=== PATIENT | female | born 1975 | race Caucasian/White ===

== ENCOUNTER 2022-02-05 17:15 | Emergency (ER) | payer OTHER, SELFPAY ==
[2022-02-05 17:27] VITALS: BMI 32.5
[2022-02-05 17:32] VITALS: PULSE 101; PULSE 98; RESP 28; TEMP 36.1; O2SAT 96
[2022-02-05 17:39] VITALS: BP 126/74; PULSE 92; O2SAT 95
[2022-02-05] MEDS: LIDOCAINE 2% INJ MDV 6 ML INJ (17:47)
--- NOTE | 2022-02-05 17:49 | DI.RAD.S_ITS ---
PROCEDURE: XR HAND LT MIN 3V INDICATIONS: r/o fx TECHNIQUE: 3 views of the hand(s) acquired. COMPARISON: None. FINDINGS: Bones: There is a dislocation of the proximal phalanx of the little finger with the middle phalanx displaced dorsally. No fracture is identified. Soft tissues: No suspicious soft tissue calcifications. IMPRESSION: Dislocation of the proximal phalanx of the little finger with no fracture identified. Dictated by: Wander Dunn M.D. on 02/05/2022 at 18:57 Approved by: Wander Dunn M.D. on 02/05/2022 at 18:58
[2022-02-05 18:00] VITALS: BP 124/64; PULSE 98; O2SAT 96
--- NOTE | 2022-02-05 18:01 | DI.RAD.S_ITS ---
PROCEDURE: XR FINGER LT MIN 2V INDICATIONS: fx on previous xray needs fixing TECHNIQUE: AP hand, 2 views of the little finger(s) acquired. COMPARISON: [facility], , XR HAND LT MIN 3V, 02/05/2022, 17:48. FINDINGS: Bones: On the volar side of the PIP joint of the little finger there is a 2 mm density suspicious for an avulsion fracture. Soft tissues: No suspicious soft tissue calcifications. IMPRESSION: Possible avulsion fracture on the volar side of the little finger PIP joint. Dictated by: Wander Dunn M.D. on 02/05/2022 at 18:58 Approved by: Wander Dunn M.D. on 02/05/2022 at 19:00
--- NOTE | 2022-02-05 18:08 | PC.NURSE ---
gave digital block and ring cutter used to remove ring.
--- NOTE | 2022-02-05 18:19 | ED.UPPEXIN ---
HPI - Extremity Injury (Upper) General Chief Complaint: Extremity Injury, Upper Stated Complaint: Left little finger injury Time Seen by Provider: 02/05/22 17:20 Source: patient Mode of arrival: Ambulatory History of Present Illness HPI narrative: 46-year-old woman who comes to the ED tonight with a dislocated finger. She was getting on a boat hit her finger got caught in the handrail. She has intense pain in the left little finger. She denies injury elsewhere. She was otherwise well earlier today. No previous injury to that area. No break in the skin. Related Data Allergies Allergy/AdvReac Type Severity Reaction Status Date / Time MORPHINE Allergy Mild ITCHING Uncoded 02/05/22 17:32 Review of Systems Review of Systems Narrative: Complete review of systems is otherwise negative. Exam Narrative Exam Narrative: GENERAL: Alert, cooperative and in no distress. HEAD: Atraumatic. Normocephalic. EYES: Sclera are clear without icterus. Extraocular movements are full. ENT: No rhinorrhea NECK: No visible abnormality RESPIRATORY: No respiratory distress GASTROINTESTINAL: Nondistended EXTREMITIES: Obvious dislocation of the left little finger PIP joint no break in the skin normal distal neurovascular status NEURO: Nonfocal, normal speech SKIN: No rash or erythema of visible areas PSYCH: Normally oriented. Normal range of affect. Appropriate behavior Initial Vital Signs Initial Vital Signs: Vital Signs Temperature 96.9 F L 02/05/22 17:32 Pulse Rate 98 H 02/05/22 17:32 Respiratory Rate 28 H 02/05/22 17:32 Pulse Oximetry 96 02/05/22 17:32 Oxygen Delivery Method 02/05/22 17:32 Procedures Orthopedic Joint Reduction Joint #1: Time of procedure: 18:00 Time Out Performed: No Side: left Joint Reduction Location: finger Analgesia: nerve block Local Anesthesia: lidocaine 2% Amount of anesthesic used (mL): 6 Additional Comments: After the digita block was placed, joint reduction is easily accomplished with direct traction. Pre and post reduction x-rays are observed. No fracture seen. Joint reduction is complete Course Orders Ordered: ED Orders 02/05/22 17:49 XR hand LT min 3V Stat 02/05/22 18:01 XR finger LT min 2V Stat Discontinued Medications Lidocaine HCl (Lidocaine 2% Inj Mdv) 6 ml INJ INTRA-OP ONE Stop: 02/05/22 17:47 Last Admin: 02/05/22 17:47 Dose: 6 ml Documented By: ARNALDO Vital Signs Vital signs: Vital Signs - 8 hr 02/05/22 17:32 02/05/22 17:32 02/05/22 17:39 Temperature 96.9 F L Pulse Rate 98 H 101 H Respiratory Rate 28 H Blood Pressure 126/74 Pulse Oximetry 96 96 Oxygen Delivery Method Room Air 02/05/22 17:39 02/05/22 18:00 02/05/22 18:00 Temperature Pulse Rate 92 H 98 H Respiratory Rate Blood Pressure 124/64 Pulse Oximetry 95 96 Oxygen Delivery Method MDM - Extremity Injury (Upper) MDM Narrative Medical decision making narrative: Joint reduction accomplished easily. Splint placed. Discharge Plan Departure Patient Disposition: Home Clinical Impression: Dislocation of finger Activity Restrictions/Additional Instructions: I am glad that we could take care of your finger dislocation. I recommend ice packs, Tylenol, ibuprofen as needed. Only the ice on for more than 30 minutes at a time. Use the splint for comfort. Follow-up with Dr. Smith in a few days of the finger does not seem to be back to normal. Referrals: Tan Smith MD [Primary Care Provider] -
== END 2022-02-05 18:33 | disposition home or self-care (01) ==
PROVIDERS: Emergency Provider Family Medicine Addiction Medicine; PCP Family Medicine
DX: S63.257A Unspecified dislocation of left little finger, initial encounter (principal); X58.XXXA Exposure to other specified factors, initial encounter
CPT/HCPCS: 26770; 73130; 73140; 99282; 99284